=== PATIENT | female | born 1945 | race African-American/Black ===

== ENCOUNTER → 2016-10-07 | Outpatient (CLI) | payer MEDICARE, BC ==
[~2016-10-07] MED LIST: ATOR20TA58 PO; CALC-98 PO; FOLI1TAB35 PO; LISI-338 PO; METF500T4 PO; OMEG1CAP27 PO; TRAM50TA PO
--- NOTE | 2016-10-07 13:09 | RAD ---
Bilateral lower extremity arterial ultrasound, 10/07/2016: History: Peripheral vascular disease Duplex evaluation of the major arteries in both lower extremities was performed including grayscale, color-flow and spectral Doppler analysis. No significant focal atherosclerotic plaquing is seen. Both common femoral arteries demonstrate triphasic Doppler waveforms. No significant velocity acceleration is seen in either superficial femoral or popliteal artery to suggest significant focal stenosis. Patent anterior tibial, posterior tibial and peroneal arteries are present in both lower legs demonstrating biphasic Doppler waveforms. Both dorsalis pedis arteries demonstrate good amplitude biphasic Doppler waveforms. IMPRESSION: No duplex evidence of significant arterial occlusive disease in either lower extremity.
== END | disposition home or self-care (01) ==
LOC: US 07:41
PROVIDERS: ATTEND Family Medicine
DX: I73.9 Peripheral vascular disease, unspecified (principal)
CPT/HCPCS: 93925

== ENCOUNTER → 2016-11-19 | Outpatient (CLI) | payer MEDICARE, BC ==
--- NOTE | 2016-11-21 07:51 | RAD ---
DATE: 11/19/2016 EXAM: DIGITAL SCREEN BILAT W/CAD HISTORY: Asymptomatic screening mammogram. COMPARISON: Prior mammograms from 11/20/2015, 11/01/2014, 09/21/2013 This study was interpreted with the benefit of Computerized Aided Detection (CAD). The breast parenchyma is primarily fatty replaced. Breast parenchyma level density A. FINDINGS: Right breast: There is a focal asymmetry in the outer right breast identified slightly inferior to the posterior nipple line on the right MLO view at mid to posterior depth. Further imaging is recommended to include spot compression CC and MLO views as well as possible ultrasound. Left breast: There are no suspicious microcalcifications, masses or areas of architectural distortion. IMPRESSION: 1. Incomplete right mammogram. Additional views are recommended, as above. 2. Negative left mammogram. BI-RADS CATEGORY: 0 INCOMPLETE: NEEDS ADDITIONAL IMAGING EVALUATION AND/OR PRIOR MAMMOGRAMS FOR COMPARISON. RECOMMENDED FOLLOW-UP: ADD ADDITIONAL IMAGING PQRS compliance statement: Mammography is a sensitive method for finding small breast cancers, but it does not detect them all and is not a substitute for careful clinical examination. A negative mammogram does not negate a clinically suspicious finding and should not result in delay in biopsying a clinically suspicious abnormality. "Our facility is accredited by the [employer] Mammography Program."
== END | disposition home or self-care (01) ==
LOC: MAMMO 09:39
PROVIDERS: ATTEND Family Medicine
DX: Z12.31 Encounter for screening mammogram for malignant neoplasm of breast (principal)
CPT/HCPCS: G0202; 77067

== ENCOUNTER → 2016-12-02 | Outpatient (CLI) | payer MEDICARE, BC ==
--- NOTE | 2016-12-02 10:26 | RAD ---
DATE: 12/02/2016. EXAM: DIGITAL DIAGNOSTIC RT, ULTRASOUND BREAST RIGHT. HISTORY: Density on mammographic screening. Additional imaging is requested. COMPARISON: 11/01/2014, 11/20/2015. This study was interpreted with the benefit of Computerized Aided Detection (CAD). FINDINGS: The breast parenchyma shows scattered fibroglandular densities. Breast parenchyma level B.. The dense focus of concern appears to resolve on additional images. A few nodular foci are simulated by mildly dilated ducts. Scattered calcifications appear stable and benign. On today's sonography, a few dilated ducts are seen. There is no suspicious finding. BI-RADS CATEGORY: 2 BENIGN FINDING(S). RECOMMENDED FOLLOW-UP: 12M 12 MONTH FOLLOW-UP. PQRS compliance statement: Patient information was entered into a reminder system with a target due date 12/02/2017 for the next mammogram. Mammography is a sensitive method for finding small breast cancers, but it does not detect them all and is not a substitute for careful clinical examination. A negative mammogram does not negate a clinically suspicious finding and should not result in delay in biopsying a clinically suspicious abnormality. "Our facility is accredited by the [employer] Mammography [employer]."
== END | disposition home or self-care (01) ==
LOC: MAMMO 09:17
PROVIDERS: ATTEND Family Medicine
DX: R92.8 Other abnormal and inconclusive findings on diagnostic imaging of breast (principal)
CPT/HCPCS: 76641; G0206; 77065

== ENCOUNTER → 2017-12-09 | Outpatient (CLI) | payer MEDICARE, BC ==
[~2017-12-09] MED LIST changes: +METF500T16 PO; -METF500T4 PO
--- NOTE | 2017-12-11 08:00 | RAD ---
DATE: 12/09/2017 EXAM: MAMMO ANATOLIY SCREENING BILATERAL HISTORY: Routine screen COMPARISON: 11/19/2016, 12/02/2016 This study was interpreted with the benefit of Computerized Aided Detection (CAD). Breast Density: SCATTERED The breast parenchyma shows scattered fibroglandular densities. Breast parenchyma level B. FINDINGS: 2-D and 3-D tomosynthesis imaging was performed in CC and MLO projections. No new or enlarging breast densities are seen. Scattered benign type calcifications are present. No suspicious microcalcifications have developed. IMPRESSION: Stable mammograms without evidence of malignancy. BI-RADS CATEGORY: 3 PROBABLY BENIGN FINDING(S)-SHORT INTERVAL FOLLOW-UP SUGGESTED RECOMMENDED FOLLOW-UP: 12M 12 MONTH FOLLOW-UP PQRS compliance statement: Patient information was entered into a reminder system with a target due date for the next mammogram. Mammography is a sensitive method for finding small breast cancers, but it does not detect them all and is not a substitute for careful clinical examination. A negative mammogram does not negate a clinically suspicious finding and should not result in delay in biopsying a clinically suspicious abnormality. "Our facility is accredited by the [employer] Mammography [employer]."
== END | disposition home or self-care (01) ==
LOC: MAMMO 08:55
PROVIDERS: ATTEND Family Medicine
DX: Z12.31 Encounter for screening mammogram for malignant neoplasm of breast (principal)
CPT/HCPCS: 77063; 77067

== ENCOUNTER → 2018-02-16 | Day surgery (SDC) | payer MEDICARE, BC ==
[~2018-02-16] MED LIST changes: +HYDROmorphone 2 MG/ML VIAL IV PRN; +IV RINGERS,LACTATED 1000ML 1,000 ML IV SCH; +LIDOCAINE 1% PF 2 ML VIAL. ID PRN; +LIDOCAINE 1% PF 2 ML VIAL. ONE; +LOSA100T14 PO; +MORPHINE SULFATE 2 MG/ML VIAL. IV PRN; +ONDANSETRON PF 4 MG/2 ML VIAL. IV PRN; +PROCHLORPERAZINE 10 MG/2 ML VIAL. IV PRN; +PROPOFOL 40 ML IV ONE; +fentaNYL PF VIAL 100 MCG/2 ML VIAL IV PRN
[2018-02-16 09:38] VITALS: BP 124/59
--- NOTE | 2018-02-16 10:39 | CONS ---
DATE OF CONSULTATION: 02/16/2018 GASTROENTEROLOGY CONSULTATION REFERRING PHYSICIAN: Higinio Valdez. REASON FOR CONSULTATION: Positive Cologuard. HISTORY OF PRESENT ILLNESS: This is a 72-year-old -[place] female whose past medical history is significant for hypertension, diabetes, status post lumbar stenosis surgery and parotid gland surgery as well as , seen for a screening colon. Bowel habits have been regular, without diarrhea or constipation. There has been no melena and/or hematochezia. Family history likewise unrevealing for colon polyps or colon cancer. Recent Cologuard test was positive and she is here for exam today. PAST MEDICAL HISTORY: Hypertension, diabetes, status post lumbar stenosis surgery, status post parotid gland surgery and status post C-sections. ALLERGIES: None. MEDICATIONS: Include vitamin D, folic acid, losartan, metformin and [place] 3. SOCIAL HISTORY: She does not drink or smoke. She is employed as a director loan. FAMILY HISTORY: Noncontributory. REVIEW OF SYSTEMS: Negative for 12 points, except for the hypertension and diabetes in the cardiac and endocrine systems. PHYSICAL EXAMINATION: GENERAL: Reveals a well-nourished, well-developed -[place] female. VITAL SIGNS: Temperature is 97.3, pulse 94 and respirations 20. HEENT EXAMINATION: Reveals normocephalic and atraumatic head. Pupils and extraocular muscles are not tested. Sclerae are anicteric. NECK: Supple. LUNGS: Clear. CARDIOVASCULAR EXAMINATION: Reveals an S1, S2, without S3, S4 or appreciable murmur. ABDOMEN: Exam reveals a soft abdomen. Normoactive bowel sounds, without appreciable hepatosplenomegaly. EXTREMITIES: Exam reveals no cyanosis, clubbing or edema. IMPRESSION: Positive Cologuard. Colonoscopy is warranted at this time. Risks and benefits of the procedure, including risk of hemorrhage and perforation requiring operation, have been discussed. The patient is willing to proceed at this time. I would like to thank Dr. Valdez for allowing us to consult and participate in this patient's care. VALERIE BUENO MD DR: RADHA/ewelina JOB#: [id number] / [id number]
--- NOTE | 2018-02-19 13:09 | PATHOLOGY ---
[facility] Accession Number: [id number] . 01 Material submitted: . SIGMOID POLYP . 01 Clinical history: . CRCS, positive cologuard . 02 Diagnosis: Colon biopsy, sigmoid colon: - Consistent with hyperplastic polyp/prominent fold with mucosal associated lymphoid aggregate. P/02/19/2018 . 02 Comment: There are no adenomatous changes or evidence of malignancy. (JPM:[facility] 02/19/2018) . 02 Electronically signed: . Pankaj Buckner MD, Pathologist NPI- [id number] . 01 Gross description: . Received in formalin labeled "Gethers, Lisa, sigmoid polyp," is a single segment of dowling soft tissue measuring 0.2 cm in maximum dimension. The specimen is entirely submitted in cassette A1. (TSD; 02/16/2018) TOB/TOB . 02 Pathologist provided ICD-10: K63.5 . 02 CPT . 089418 Specimen Comment: A courtesy copy of this report has been sent to Specimen Comment: [phone], . Specimen Comment: Report sent to / DR CHOWDHURY Specimen Comment: A duplicate report has been generated due to demographic updates. Performed at: 01 [facility] [address], [place], [place] [id number] MD Taras Munoz MD Phone: [phone] Performed at: 02 [facility] [address], [place] [id number] MD Pankaj Buckner MD Phone: [phone]
== END | disposition home or self-care (01) ==
LOC: SURG 07:21
PROVIDERS: ATTEND Internal Medicine Gastroenterology
DX: K63.5 Polyp of colon (principal); K57.30 Diverticulosis of large intestine without perforation or abscess without bleeding; K64.0 First degree hemorrhoids; I10 Essential (primary) hypertension; E11.9 Type 2 diabetes mellitus without complications; Z98.890 Other specified postprocedural states; Z79.899 Other long term (current) drug therapy; Z79.84 Long term (current) use of oral hypoglycemic drugs
CPT/HCPCS: 45380; 88305; J2704

== ENCOUNTER → 2018-10-05 | Outpatient (CLI) | payer MEDICARE, BC ==
[2018-02-16 09:38] VITALS: BP 124/59
[~2018-10-05] MED LIST changes: -HYDROmorphone 2 MG/ML VIAL IV PRN; -IV RINGERS,LACTATED 1000ML 1,000 ML IV SCH; -LIDOCAINE 1% PF 2 ML VIAL. ID PRN; -LIDOCAINE 1% PF 2 ML VIAL. ONE; -MORPHINE SULFATE 2 MG/ML VIAL. IV PRN; -ONDANSETRON PF 4 MG/2 ML VIAL. IV PRN; -PROCHLORPERAZINE 10 MG/2 ML VIAL. IV PRN; -PROPOFOL 40 ML IV ONE; -fentaNYL PF VIAL 100 MCG/2 ML VIAL IV PRN
--- NOTE | 2018-10-05 08:59 | RAD ---
Bilateral lower extremity arterial ultrasound History: Peripheral arterial disease, hypertension Findings: Multiple grayscale, color, and duplex spectral analysis sonographic images were acquired of the lower extremity arteries bilaterally. There are no previous similar exams. There is scattered calcified plaque bilaterally, some apparent collateral vessels also present. There are mostly biphasic waveforms of the lower extremity arteries bilaterally, no monophasic waveforms demonstrated. Velocities in cm/sec: RIGHT Common femoral artery 133 Profunda femoris artery 62 Proximal SFA 146 Mid SFA 114 Distal SFA 98 Popliteal artery 68 Posterior tibial artery 92 proximally and 64 distally Peroneal artery 63 Anterior tibial artery 83 Dorsalis pedis artery 67 LEFT: Common femoral artery 105 Profunda femoris artery 56 Proximal SFA 139 Mid SFA 106 Distal SFA 99 Popliteal artery 77 Posterior tibial artery 75 proximally and 69 distally Peroneal artery 59 Anterior tibial artery 100 Dorsalis pedis artery 64 Impression: 1. No vessel occlusion is demonstrated, no significant velocity increase suggestive of significant focal stenosis. There is calcified plaque bilaterally. Ankle brachial indices: Right ANIYAH was 1.2, left ANIYAH 1.3. Impression 1. Ankle brachial indices are considered within normal limits. Electronically signed by: José Villarreal MD (10/05/2018 8:56 AM) [id number]
== END | disposition home or self-care (01) ==
LOC: US 12:28
PROVIDERS: ATTEND Family Medicine
DX: I70.293 Other atherosclerosis of native arteries of extremities, bilateral legs (principal); I10 Essential (primary) hypertension
CPT/HCPCS: 93922; 93925

== ENCOUNTER → 2018-12-10 | Outpatient (CLI) | payer MEDICARE, BC ==
[2018-02-16 09:38] VITALS: BP 124/59
--- NOTE | 2018-12-10 16:43 | RAD ---
DATE: 12/10/2018 EXAM: MAMMO ANATOLIY SCREENING BILATERAL HISTORY: Asymptomatic screening mammogram COMPARISON: 12/09/2017, 11/19/2016 This study was interpreted with the benefit of Computerized Aided Detection (CAD). Breast Density: SCATTERED The breast parenchyma shows scattered fibroglandular densities. Breast parenchyma level B. FINDINGS: Bilateral CC and MLO views of the breasts were performed. Bilateral breast tomosynthesis was performed in CC and MLO projections. Right breast: There are no suspicious microcalcifications, masses or areas of architectural distortion. Left breast: There are no suspicious microcalcifications, masses or areas of architectural distortion. Findings are stable from prior mammogram. IMPRESSION: Negative bilateral mammogram. BI-RADS CATEGORY: 1 NEGATIVE RECOMMENDED FOLLOW-UP: 12M 12 MONTH FOLLOW-UP PQRS compliance statement: Patient information was entered into a reminder system with a target due date 12/11/2019 for the next mammogram. Mammography is a sensitive method for finding small breast cancers, but it does not detect them all and is not a substitute for careful clinical examination. A negative mammogram does not negate a clinically suspicious finding and should not result in delay in biopsying a clinically suspicious abnormality. "Our facility is accredited by the [employer] Mammography Program."
== END | disposition home or self-care (01) ==
LOC: MAMMO 07:44
PROVIDERS: ATTEND Family Medicine
DX: Z12.31 Encounter for screening mammogram for malignant neoplasm of breast (principal); N64.89 Other specified disorders of breast
CPT/HCPCS: 77063; 77067

== ENCOUNTER → 2019-11-20 | Outpatient (CLI) | payer BC, MEDICARE ==
[2018-02-16 09:38] VITALS: BP 124/59
[2019-11-20 08:56] LABS: BASO # 0.1 x10^3/uL (0.0-0.2); BASO % 1 % (0-3); EOS # 0.1 x10^3/uL (0.0-0.7); EOS % 2 % (0-3); HEMATOCRIT 38.5 % (36.0-47.0); HEMOGLOBIN 12.7 g/dL (12.0-15.5); LYMPH % 44 % (24-48); MEAN CORPUSCULAR HEMOGLOBIN 29 pg (25-35); MEAN CORPUSCULAR HGB CONC 33 g/dL (31-37); MEAN CORPUSCULAR VOLUME 87 fL (79-100); MONO # 0.6 x10^3/uL (0.0-1.1); MONO % 9 % (0-9); NEUT # 3.1 x10^3/uL (1.8-7.7); NEUT % 44 % (31-73); PLATELET COUNT 254 x10^3/uL (140-400); RED BLOOD COUNT 4.44 x10^6/uL (3.50-5.40); RED CELL DISTRIBUTION WIDTH 12.7 % (11.5-14.5)
[2019-11-20 09:11] LABS: ALBUMIN 3.8 g/dL (3.4-5.0); CALCIUM 9.4 mg/dL (8.5-10.1); CHOLESTEROL/HDL RATIO 2.8; CREATININE 0.6 mg/dL (0.6-1.0); GFR 118.9; TOTAL BILIRUBIN 0.5 mg/dL (0.2-1.0); TOTAL PROTEIN 7.7 g/dL (6.4-8.2)
[2019-11-21 03:10] LABS: HEMOGLOBIN A1C 7.6 % (4.8-5.6)
== END | disposition home or self-care (01) ==
LOC: LAB 07:35
PROVIDERS: ATTEND Family Medicine
DX: E78.5 Hyperlipidemia, unspecified (principal); E11.49 Type 2 diabetes mellitus with other diabetic neurological complication; I10 Essential (primary) hypertension
CPT/HCPCS: 36415; 80053; 80061; 83036; 85025

== ENCOUNTER → 2019-12-21 | Outpatient (CLI) | payer BC, MEDICARE ==
[2018-02-16 09:38] VITALS: BP 124/59
--- NOTE | 2019-12-25 13:18 | RAD ---
DATE: 12/21/2019 EXAM: MAMMO ANATOLIY SCREENING BILATERAL HISTORY: 74-year-old woman presenting for annual screening mammogram COMPARISON: Screening mammogram 12/10/2018, 12/09/2017, 11/19/2016 This study was interpreted with the benefit of Computerized Aided Detection (CAD). Breast Density: The breast parenchyma shows scattered fibroglandular densities. Breast parenchyma level B. FINDINGS: No mass, suspicious calcification, or architectural distortion in either breast. There are benign appearing scattered bilateral calcifications. IMPRESSION: No evidence of malignancy. BI-RADS CATEGORY: 2 BENIGN FINDING(S) RECOMMENDED FOLLOW-UP: 12 MONTH FOLLOW-UP PQRS compliance statement: Patient information was entered into a reminder system with a target due date 12/21/2020 for the next mammogram. Mammography is a sensitive method for finding small breast cancers, but it does not detect them all and is not a substitute for careful clinical examination. A negative mammogram does not negate a clinically suspicious finding and should not result in delay in biopsying a clinically suspicious abnormality. "Our facility is accredited by the [employer] Mammography Program." LEEANND
== END ==
LOC: MAMMO 08:40
PROVIDERS: ATTEND Family Medicine
DX: Z12.31 Encounter for screening mammogram for malignant neoplasm of breast (principal)
CPT/HCPCS: 77063; 77067

== ENCOUNTER → 2020-06-01 | Outpatient (CLI) | payer MEDICARE ==
[2018-02-16 09:38] VITALS: BP 124/59
[~2020-06-01] MED LIST changes: -LISI-338 PO; +LISI-517 PO
[2020-06-01 08:09] LABS: BASO # 0.1 x10^3/uL (0.0-0.2); BASO % 1 % (0-3); EOS # 0.1 x10^3/uL (0.0-0.7); EOS % 2 % (0-3); HEMATOCRIT 38.8 % (36.0-47.0); HEMOGLOBIN 12.9 g/dL (12.0-15.5); LYMPH # 2.6 x10^3/uL (1.0-4.8); LYMPH % 40 % (24-48); MEAN CORPUSCULAR HEMOGLOBIN 28 pg (25-35); MEAN CORPUSCULAR HGB CONC 33 g/dL (31-37); MEAN CORPUSCULAR VOLUME 86 fL (79-100); MONO # 0.5 x10^3/uL (0.0-1.1); MONO % 8 % (0-9); NEUT # 3.3 x10^3/uL (1.8-7.7); NEUT % 50 % (31-73); PLATELET COUNT 255 x10^3/uL (140-400); RED BLOOD COUNT 4.54 x10^6/uL (3.50-5.40); RED CELL DISTRIBUTION WIDTH 14.2 % (11.5-14.5); WHITE BLOOD COUNT 6.6 x10^3/uL (4.0-11.0)
[2020-06-01 08:28] LABS: ALBUMIN 3.8 g/dL (3.4-5.0); ALBUMIN/GLOBULIN RATIO 0.9 (1.0-1.7); CALCIUM 9.3 mg/dL (8.5-10.1); CREATININE 0.7 mg/dL (0.6-1.0); GFR 99.2; POTASSIUM 4.2 mmol/L (3.5-5.1); TOTAL BILIRUBIN 0.5 mg/dL (0.2-1.0); TOTAL PROTEIN 8.2 g/dL (6.4-8.2)
[2020-06-01 08:30] LABS: CHOLESTEROL/HDL RATIO 2.7
[2020-06-02 07:29] LABS: HEMOGLOBIN A1C 8.3 % (4.8-5.6)
== END ==
LOC: LAB 07:42
PROVIDERS: ATTEND Family Medicine
DX: E11.9 Type 2 diabetes mellitus without complications (principal); E78.5 Hyperlipidemia, unspecified; I10 Essential (primary) hypertension
CPT/HCPCS: 36415; 80053; 80061; 83036; 85025

== ENCOUNTER → 2021-06-02 | Outpatient (CLI) | payer MEDICARE ==
[2018-02-16 09:38] VITALS: BP 124/59
[~2021-06-02] MED LIST changes: -LISI-517 PO; +LISI5TAB15 PO
[2021-06-03 20:15] LABS: ANA INTERP Negative (.)
== END ==
LOC: LAB 15:33
PROVIDERS: ATTEND Nurse Practitioner Family
DX: G62.9 Polyneuropathy, unspecified (principal); R53.1 Weakness
CPT/HCPCS: 36415; 82607; 84165; 84443; 85651; 86038; 86140